=== PATIENT | female | born 1960 | race Caucasian/White ===

== ENCOUNTER 2019-12-26 15:19 | Emergency (ER) | payer BC ==
[~2019-12-26] VITALS: Ht 162.6 cm; Wt 65.8 kg
[~2019-12-26 15:19] MED LIST: ERGO400; Flomax0.4 MG PO; IBUP600 PO; Norco 5-325 Ta1 EACH PO; VITB2; Zofran Odt4 MG PO
[2019-12-26 15:43] LABS: BASOPHILS ABSOLUTE AUTO 0.04 K/mm3 (0.00-0.23); BASOPHILS PERCENT AUTO 0 % (0-2); EOSINOPHILS ABSOLUTE AUTO 0.26 K/mm3 (0.00-0.68); EOSINOPHILS PERCENT AUTO 3 % (0-6); Hematocrit 44.5 % (33.0-51.0); Hemoglobin 14.7 g/dL (11.5-16.0); IMMATURE GRAN ABSOLUTE AUTO 0.03 K/mm3 (0.00-0.10); IMMATURE GRAN PERCENT AUTO 0 % (0-1); LYMPHOCYTES ABSOLUTE AUTO 1.87 K/mm3 (0.84-5.20); LYMPHOCYTES PERCENT AUTO 20 % (21-46); MONOCYTES ABSOLUTE AUTO 0.59 K/mm3 (0.16-1.47); MONOCYTES PERCENT AUTO 6 % (4-13); Mean Corpuscular HGB 30.8 pg (26.0-34.0); Mean Corpuscular Volume 93 fL (80-100); Mean Platelet Volume 9.3 fL (9.1-12.4); NEUTROPHILS ABSOLUTE AUTO 6.46 K/mm3 (1.96-9.15); NEUTROPHILS PERCENT AUTO 70 % (41-73); Platelet Count 220 K/mm3 (150-400); RDW Coefficient Variation 11.6 % (11.7-14.2); Red Blood Cell Count 4.78 M/mm3 (3.80-5.20); White Blood Cell Count 9.25 K/mm3 (4.00-11.30)
[2019-12-26 16:03] LABS: Alanine Aminotransfer (ALT/SGP 24 U/L (12-78); Albumin/Globulin Ratio 1.2 (0.8-1.8); Alk Phos 58 U/L (50-136); Anion Gap 4 mmol/L (6-16); Aspartate Aminotrans (AST/SGOT 11 U/L (12-37); Bilirubin, Total 0.4 mg/dL (0.1-1.0); Blood Urea Nitrogen 25 mg/dL (8-24); CO2, Blood 26 mmol/L (21-32); Calcium, Blood 8.9 mg/dL (8.5-10.1); Chloride, Blood 109 mmol/L (98-108); Creatinine, Blood 0.74 mg/dL (0.40-1.00); Globulin, Blood 3.3 g/dL (2.2-4.0); Glomerular Filtration Rate >60 (60-); Glucose, Blood 98 mg/dL (70-99); Potassium, Blood 3.8 mmol/L (3.5-5.5); Sodium, Blood 139 mmol/L (136-145); Total Protein, Blood 7.3 g/dL (6.4-8.2); Troponin I <0.015 ng/mL (0.000-0.040)
== END 2019-12-26 19:33 | disposition home or self-care (01) ==
LOC: ER 15:19
PROVIDERS: Physician Assistant
DX: R07.9 Chest pain, unspecified (principal); Z79.899 Other long term (current) drug therapy; J44.9 Chronic obstructive pulmonary disease, unspecified; F17.290 Nicotine dependence, other tobacco product, uncomplicated
CPT/HCPCS: 36415; 71046; 80053; 84484; 85025; 93005; 93010; 99284-25

== ENCOUNTER 2022-10-23 08:00 | Day surgery (SDC) | payer BC ==
[~2022-10-23 08:00] MED LIST changes: +VITAMIN C; +VITAMIN D
== END 2022-10-23 10:05 | disposition home or self-care (01) ==
DX: Z12.11 Encounter for screening for malignant neoplasm of colon (principal); Z86.010 Personal history of colon polyps; K63.5 Polyp of colon; D12.4 Benign neoplasm of descending colon; K63.89 Other specified diseases of intestine; K64.8 Other hemorrhoids; K64.4 Residual hemorrhoidal skin tags; Z87.891 Personal history of nicotine dependence

== ENCOUNTER → 2023-06-24 | Outpatient (CLI) | payer BC | END | disposition home or self-care (01) | LOC: LAB 08:32 → LAB SHORT 08:32 | DX: C44.01 Basal cell carcinoma of skin of lip (principal) | CPT/HCPCS: 88305 ==

== ENCOUNTER 2025-09-29 06:23 | Day surgery (SDC) | payer BC ==
[~2025-09-29] VITALS: Ht 160 cm; Wt 67.0 kg
[2025-09-29] VITALS (10 sets, daily range): BP systolic 91–110; BP diastolic 53–84
[~2025-09-29 06:23] MED LIST changes: +BIOTIN1 MG PO; +CALCIUM; +CRINONE1.125 GM; +DOTTI1 EA18 TOP; +MAGNESIUM PO; +TESTOSTERONE CYP5 GM; +VITAMIN D310 MC1 PO; +Vitamin B Comple1 EA PO; +Vitamin C100 MG PO; +ZINC SULFATE50 MG
[2025-09-29] MEDS ORDERED: CeFAZolin Sodium 2,000 MG in NS 100 ML IV SCH (06:30)
[2025-09-29] MEDS ORDERED: Bupivacaine 0.5% W/EPI 1:200000 SDV 30 ML Vial ONE (07:05)
[2025-09-29] MEDS ORDERED: Bupivacaine 0.5% HCl 5 MG/ML 30MLVIAL ONE (07:06)
[2025-09-29] MEDS ORDERED: Midazolam HCl 1MG / ML 2ML Vial ONE (07:23)
[2025-09-29] MEDS ORDERED: FentaNYL Citrate 50 MCG/ML 2 ML Injection ONE (07:23)
--- NOTE | 2025-09-29 07:29 | NUR ---
History, Chart, Medications and Allergies reviewed before start of procedure.Patient confirms NPO status and agrees with scheduled surgery. Pre-Op teaching done. Pt verbalizes understanding. AT BEDSIDE
[2025-09-29] MEDS ORDERED: Dexamethasone Sod Phos 10 MG/ML 1ML VIAL ONE (07:44)
[2025-09-29] MEDS ORDERED: Ondansetron HCl 2 MG / ML 2ML Vial ONE (07:51)
[2025-09-29] MEDS ORDERED: Phenylephrine HCl 100 MCG/ML-NS 10MLSYR (1MG/10ML) ONE (07:51)
[2025-09-29] MEDS ORDERED: HYDROmorphone HCl/Pf 1MG SYR IV PRN ×2 (08:00)
[2025-09-29] MEDS ORDERED: FentaNYL Citrate 50 MCG/ML 2 ML Injection IV PRN (08:05)
[2025-09-29] MEDS ORDERED: Prochlorperazine Edisylate 10 mg Vial IV PRN (08:05)
[2025-09-29] MEDS ORDERED: Ondansetron HCl 2 MG / ML 2ML Vial IV PRN (08:05)
[2025-09-29] MEDS ORDERED: Ketorolac Tromethamine 15mg Vial IV PRN (08:15)
[2025-09-29] MEDS ORDERED: HYDROcodone 5-APAP 325 TAB PO PRN (08:25)
--- NOTE | 2025-09-29 09:19 | NUR ---
Discharge instructions reviewed with patient. Patient verbalizes understanding. Copy given to patient to take home. Dressing c/d/i. Prescription placed in discharge folder. Patient States Post-Procedure ride home has been arranged. Discharged via wheelchair to private car for ride home.
== END 2025-09-29 09:25 | disposition home or self-care (01) ==
LOC: ORSCMMR 06:23 → ORD 07:30 → ORSCMMR 09:25
PROVIDERS: Surgery
PROC: 0JB60ZX Excision of Chest Subcutaneous Tissue and Fascia, Open Approach, Diagnostic (ICD-10-PCS; principal; 2025-09-29 07:30)
DX: D17.1 Benign lipomatous neoplasm of skin and subcutaneous tissue of trunk (principal); Z87.891 Personal history of nicotine dependence
CPT/HCPCS: 88304; J0690; J1100; J2250; J2371; J2405; J2704; J3010; J7120